=== PATIENT | male | born 1985 | race Caucasian/White ===

== ENCOUNTER 2021-08-04 16:42 | Emergency (ER) | payer OTHER, SELFPAY ==
[2021-08-04 16:50] VITALS: BP 118/75; PULSE 64; RESP 18; TEMP 36.8; O2SAT 100
--- NOTE | 2021-08-04 17:31 | ED.EAR ---
HPI - Ear Problem General Chief complaint: Ear Stated complaint: ear clogged loss of balance fatigue Source: patient Mode of arrival: ambulatory Limitations: no limitations History of Present Illness HPI Narrative: Patient is a 36-year-old male who presents complaining of right ear fullness and pressure. He reports left ear was a seen earlier this week but is somewhat resolved. He reports intermittent lightheadedness and fatigue. He denies fever, sore throat, cough or congestion. He is not vaccinated for Covid at this time. He denies Covid exposure and reports that he works from home. He denies significant medical history. He denies all other complaints at this time. MD Complaint: ear pain Related Data Home Medications Medication Instructions Recorded Confirmed amoxicillin 875 mg PO Q12H 08/04/21 08/04/21 loratadine 10 mg PO DAILY 08/04/21 08/04/21 Allergies Allergy/AdvReac Type Severity Reaction Status Date / Time No Known Allergies Allergy Verified 08/04/21 17:13 Review of Systems Review of Systems: CONSTITUTIONAL: Denies fever, chills, or sweats. EYES: Denies visual changes, redness, or discharge. ENT: Denies rhinorrhea, congestion, sore throat, reports right otalgia CARDIOVASCULAR: Denies chest pain, palpitations, or edema. RESPIRATORY: Denies cough or dyspnea. GASTROINTESTINAL: Denies abdominal pain, nausea, vomiting, or diarrhea. GENITOURINARY: Denies dysuria or hematuria. SKIN: Denies rash or itching. MUSCULOSKELETAL: Denies back pain, joint pain, or myalgia. NEUROLOGIC: Denies headache, numbness, dizziness, or weakness. PSYCHIATRIC: Denies anxiety or depression. [facility] Social History Social History (Updated 08/04/21 @ 17:32 by DAVID Mishra) Smoking status: Never smoker Alcohol intake: current Alcohol use details: Occasional Substance use: never Living arrangements: with family Occupation/Education: occupation Gender identity (if verbalized by the patient): Male Comments At the time of signature, I have reviewed and agree with nursing past medical, surgical, social, and family history unless otherwise noted. Please see nursing chart for further information. There is no relevant family history pertinent to the presenting complaint. Exam Narrative: GENERAL: Well-appearing, well-nourished, and in no acute distress. HEAD: Normocephalic, atraumatic. EYES: EOMI. No redness or drainage. Conjunctiva are normal. ENT: Mucous membranes pink and moist. Nares clear. No rhinorrhea. TMs full bilaterally. Throat normal. Uvula midline. NECK: AROM. Supple. No lymphadenopathy. CHEST: No respiratory distress. HEART: Regular rate and rhythm. EXTREMITIES: Normal range of motion. No edema. SKIN: Warm, dry, no rash. NEURO: No focal deficits. Alert and oriented x3. Gait steady. PSYCH: Normal affect. No signs of depression or anxiety. Course Vital Signs Vital signs: Vital Signs Temperature 36.8 C 08/04/21 16:50 Pulse Rate 64 08/04/21 16:50 Respiratory Rate 18 08/04/21 16:50 Blood Pressure 118/75 08/04/21 16:50 Pulse Oximetry 100 08/04/21 16:50 Temperature 36.8 C 08/04/21 16:50 Pulse Rate 64 08/04/21 16:50 Respiratory Rate 18 08/04/21 16:50 Blood Pressure 118/75 08/04/21 16:50 Pulse Oximetry 100 08/04/21 16:50 Reviewed Medical Decision Making MDM Narrative Medical decision making narrative: Discussed with patient to continue taking amoxicillin as prescribed by PCP. Patient did start Claritin or Zyrtec as well as Flonase. Prednisone to be started at this time. Discussed with patient Covid testing, Covid PCR sent, patient is aware of quarantine. Patient is stable for discharge to home with outpatient follow-up as needed. Differential Diagnosis Differential Diagnosis: Otitis media, otitis externa, Covid, seasonal allergies Vital Signs Vital Signs: Vital Signs Temperature 36.8 C 08/04/21 16:50 Pulse Rate 64 08/04/21 16:50 Respira
[2021-08-06 18:39] LABS: SARS-CoV-2 RNA PCR Negative
== END 2021-08-04 17:43 | disposition home or self-care (01) ==
PROVIDERS: Emergency Provider Nurse Practitioner
DX: H66.90 Otitis media, unspecified, unspecified ear (principal); Z20.822 Contact with and (suspected) exposure to COVID-19
CPT/HCPCS: 99213; C9803; G0463; U0003; U0005